=== PATIENT | female | born 1985 | race Caucasian/White ===

== ENCOUNTER 2018-05-01 05:57 | Emergency (ER) | payer OTHER ==
[2018-05-01] MEDS ORDERED: Sodium Chloride 0.9% 1,000 ML IV ONE ×2 (06:18→07:35)
[2018-05-01] MEDS ORDERED: Ondansetron 4 MG/2 ML SDV IVPUSH ONE (06:18)
--- NOTE | 2018-05-01 07:17 | EDM.PDOC ---
ED HPI GENERAL MEDICAL PROBLEM - General Chief Complaint: Gastrointestinal Problem Stated Complaint: NAUSEA DIZZYNESS Time Seen by Provider: 05/01/18 06:30 Source of Information: Reports: Patient History Limitations: Reports: No Limitations - History of Present Illness INITIAL COMMENTS - FREE TEXT/NARRATIVE: 82-year-old 4 para 1-1 approximate 8 weeks by ultrasound first saw her provider . She is "struggling to keep a fluid balance". When she was seen 04/28/18 at the [facility] she was told that her blood pressure was "so low" and she was "short of fluid " and no IV treatment started. She has attempted to sustain fluid balance by using ice chips,Unisom, B12, rao sabina and Powerade, She thinks she has not lost weight but does not remember if she was weighed on the last clinic visit , 2 years, has a mild headache mild photophobia vomited once approximately 24 hours ago. When asked when she last vomited, she said at "9 AM this morning "". It's 6 exam now so that reflects a confusion/ delerium. Her came home from work at 5 AM she was awakened felt nauseated and came to the ED for further care. She had been followed by Dr. Landa last at [place] and delivered in [place] but is being followed by [facility] because of her insurance. She takes antidepressant medicine a escitalopram. denies fever, frequency urgency dysuria, hx f hypertension or preeclamsia with other pregnancies. ight - Related Data Allergies Allergy/AdvReac Type Severity Reaction Status Date / Time No Known Allergies Allergy Verified 05/01/18 06:42 Home Meds: Home Meds Zonisamide [Zonegran] 100 mg PO BID 07/17/15 [History] Folic Acid 1 mg PO DAILY 05/18/16 [History] PNV95/Ferrous Fumarate/FA [ Tablet] 1 each PO DAILY 11/20/16 [History] Escitalopram [Lexapro] 20 mg PO DAILY 05/01/18 [History] Ondansetron [Zofran ODT] 4 mg PO Q6H PRN #16 tab.dis 05/01/18 [Rx] Ondansetron [Zofran ODT] 4 mg PO Q6H PRN #20 tab.dis 05/01/18 [Rx] Past Medical History CLINICAL PSYCHOLOGIST History: Reports: , Other (See Below) Other CLINICAL PSYCHOLOGIST History: 2 miscarriages Neurological History: Reports: Seizure, Other (See Below) Other Neuro History: Epilepsy Psychiatric History: Reports: Depression - Infectious Disease History Infectious Disease History: Reports: Chicken Pox - Past Surgical History Female Surgical History: Reports: Section Social & Family History - Family History Family Medical History: Noncontributory - Tobacco Use Smoking Status *Q: Never Smoker - Caffeine Use Caffeine Use: Reports: None - Recreational Drug Use Recreational Drug Use: No ED ROS GENERAL - Review of Systems Review Of Systems: See Below Constitutional: Reports: No Symptoms, Fatigue HEENT: Reports: No Symptoms, Other (Mild photophobia migraine headache) Respiratory: Reports: No Symptoms Cardiovascular: Reports: No Symptoms Endocrine: Reports: No Symptoms GI/Abdominal: Reports: Anorexia, Vomiting : Reports: No Symptoms Musculoskeletal: Reports: No Symptoms Skin: Reports: No Symptoms Neurological: Reports: No Symptoms Psychiatric: Reports: Depression Hematologic/Lymphatic: Reports: No Symptoms ED EXAM - Physical Exam Exam: See Below Text/Narrative:: Wasn't tired mildly delirious woman with dry lips who drove to the hospital, mildly overweight. And her lips are mildly dry as well as the mucosa of her mouth General Appearance: Alert, WD/WN, Mild Distress Eye Exam: Right Eye: Globe Laceration, Bilateral Eye: Normal Inspection, PERRL Ears: Normal External Exam, Normal Canal, Normal TMs Nose: Normal Inspection Throat/Mouth: Normal Inspection, Normal Teeth, Normal Gums, Normal Voice, Other (MRI none fissured lips. Dry oral mucosa.) Head: Atraumatic, Normocephalic Neck: Normal Inspection, Supple, Non-Tender Respiratory/Chest: No Respiratory Distress, Lungs Clear, Normal Breath Sounds, No Accessory Muscle Use, Chest Non-Tender Cardiovascular: Normal Peripheral Pulses, Regular Rate, Rhythm, No Edema, No Gallop, No JVD, No Murmur, No Rub GI/Abdominal Exam: Soft, Non-Tender, No Organomegaly, No Distention, No Mass, Other (Uterus not palpable hence abdominal) Rectal Exam: Deferred (Female) Exam: Deferred for Placenta Previa Extremities: Normal Inspection, Normal Range of Motion, Non-Tender, Normal Capillary Refill Neurological: Alert, Oriented, CN II-XII Intact, Normal Cognition, Normal Gait, Normal Reflexes, No Motor/Sensory Deficits, Other (Hypoactive reflexes) Psychiatric: Normal Affect, Normal Mood Skin Exam: Warm, Dry, Intact, Normal Color, No Rash Course - Vital Signs Last Recorded V/S: Last Vital Signs Temp 36.8 C 05/01/18 06:35 Pulse Resp 17 05/01/18 06:35 BP 118/17 L 05/01/18 06:35 Pulse Ox 97 05/01/18 06:35 - Orders/Labs/Meds Orders: Active Orders 24 hr Category Date Time Status Sodium Chloride 0.9% [Normal Saline] 1,000 ml Med 05/01/18 06:18 Active IV .BOLUS Medication Orders Sodium Chloride (Normal Saline) 1,000 mls @ 999 mls/hr IV .BOLUS ONE Stop: 05/01/18 07:18 Last Admin: 05/01/18 06:41 Dose: 999 mls/hr Meds: Medications Generic Name Dose Route Start Last Admin Trade Name Freq PRN Reason Stop Dose Admin Sodium Chloride 1,000 mls @ 999 mls/hr 05/01/18 06:18 05/01/18 06:41 Normal Saline IV 05/01/18 07:18 999 mls/hr .BOLUS ONE Administration Discontinued Medications Generic Name Dose Route Start Last Admin Trade Name Freq PRN Reason Stop Dose Admin Ondansetron HCl 4 mg 05/01/18 06:18 05/01/18 06:41 Zofran IVPUSH 05/01/18 06:19 4 mg ONETIME ONE Administration Departure - Departure Time of Disposition: 20:00 (Approximately 8 weeks gestation 4 para 1/2/0 /1 woman nonsmoker onset of intermittent nausea and vomiting throughout this last and first clinic visit and was told to have low blood pressure but no IVs were started, patient placed on Unisom and B12 have helping slightly but hasn't resolved her nausea and vomiting. Presented today with dehydration and poor sleep.) Disposition: Home, Self-Care 01 Clinical Impression: Nausea and vomiting during - Discharge Information *PRESCRIPTION DRUG MONITORING PROGRAM REVIEWED*: Not Applicable *COPY OF PRESCRIPTION DRUG MONITORING REPORT IN PATIENT ORALIA: Not Applicable Prescriptions: Ondansetron [Zofran ODT] 4 mg PO Q6H PRN #16 tab.dis PRN Reason: Nausea/Vomiting Ondansetron [Zofran ODT] 4 mg PO Q6H PRN #20 tab.dis PRN Reason: Nausea/Vomiting Referrals: PCP,None [Primary Care Provider] - - My Orders Last 24 Hours: My Active Orders 05/01/18 06:18 Sodium Chloride 0.9% [Normal Saline] 1,000 ml IV .BOLUS - Assessment/Plan Last 24 Hours: My Active Orders 05/01/18 06:18 Sodium Chloride 0.9% [Normal Saline] 1,000 ml IV .BOLUS
[2018-05-01] MEDS ORDERED: Sodium Chloride 0.9% 10 ML Syringe FLUSH PRN (07:38)
[2018-05-01 07:40] VITALS: BP 116/57
== END 2018-05-01 09:40 | disposition home or self-care (01) ==
LOC: FB.ED 05:57
DX: O21.9 Vomiting of pregnancy, unspecified (principal); O99.341 Other mental disorders complicating pregnancy, first trimester; F32.9 Major depressive disorder, single episode, unspecified; Z3A.08 8 weeks gestation of pregnancy; Z79.899 Other long term (current) drug therapy
CPT/HCPCS: 81001; 96361; 96374; 99283; J2405; J7030; J7050